=== PATIENT | female | born 1950 ===

== ENCOUNTER 2023-05-25 09:37 | Outpatient (AMB) | payer MEDICARE, SELFPAY ==
--- NOTE | 2023-05-25 10:17 | AM.OFFWIN_ITS ---
Intake Vital Signs 05/25/23 10:19 Height 5 ft 6 in Weight 97.069 kg BMI 34.5 BP 120/70 Blood Pressure Location Lt brachial Position Sitting Pulse 87 Pulse Source Pulse Oximeter Temp 97.5 F Temp Source Temporal Artery Scan Pulse Oximetry (%) 98 Oxygen Delivery Method Room Air Intake Visit Reasons: SHIP PILOT/toe issues/[phone] Intake Note: pt is here today for toe issues started 2 days ago Patient Tobacco Use Status: Never used Tobacco Allergies No Known Allergies Allergy (Verified 05/25/23 10:18) Do you need a note to return to daycare/school/sports/work: No HPI HPI Comments History of Present Illness Details 72-year-old female presents with discolo ration of right great toenail and redness and warmth surrounding this has been going on for the past few months worsening, the redness however is new. Patient saw Dermatology for the yellowing of the nail who supposedly told her to get a pedicure. Denies recent trauma to affected digit. She says there may have been a remote history of her dropping a jar of pickles onto her right great toe. Denies numbness, tingling, fevers, chills. Has not seen podiatry Physical exam significant for No lower extremity edema.? No calf ttp. 5/5 strength to bilateral upper and lower extremities + onychomycosis of right great toe w/ surrounding paronychia w/o abscess. Noraml 2+ DP pulses equal and b/l. Normal sensation distally This is likely onychomycosis with superimposed paronychia. No signs of neurovascular compromise, threat to [place], necrotizing infection at this time. Plan will have her follow-up with Podiatry, gave her the information for [facility] in [place]. Will treat with Keflex for paronychia. And fluconazole X1 dose although i explained to her im not sure it will make much of a difference. I explained to patient this condition is usually treated with oral antifungals that are very rough on the liver and she should be closely monitored by a provider while taking these antifungals, I do not feel comfortable prescribing this from an urgent care setting. Patient understands this and states she will call Podiatry. Educated patient on diagnosis and treatment plan, answered all question, patient verbalizes understanding. At this time patient will be discharged home, advised to return with new or worsening symptoms. Educated on worrisome signs and symptoms and when to return. At this time I feel comfortable discharge home. [facility] Social History Patient Tobacco Use Status: Never used Tobacco Review of Systems Const All systems reviewed & are unremarkable except as noted in HPI and below Physical Exam Vital Signs: Last Vital Signs Temp 97.5 F 05/25/23 10:19 Pulse 87 05/25/23 10:19 BP 120/70 05/25/23 10:19 Pulse Ox 98 05/25/23 10:19 Oxygen Delivery Method Room Air 05/25/23 10:19 BMI result Body Mass Index 34.5 vss Appearance: Alert.? Oriented X3.? No acute distress.? Head: Normocephalic, atraumatic, no step-offs or deformities Eyes: Pupils equal, round and reactive to light.? Neck: Normal inspection.? Neck supple.? CVS:Pulses normal.? Respiratory: No respiratory distress. Skin: Skin warm and dry.? Normal skin color.? Normal skin turgor.? Extremities: No lower extremity edema.? No calf ttp. 5/5 strength to bilateral upper and lower extremities + onychomycosis of right great toe w/ surrounding paronychia w/o abscess. Noraml 2+ DP pulses equal and b/l. Normal sensation distally Neuro: Oriented X 3.? No motor deficit.? No sensory deficit. CN 2-12 intact Assessment & Plan Assessment & Plan (1) Onychomycosis: Code(s): B35.1 - Tinea unguium Plan Take your medications as prescribed. If you were prescribed antibiotics today, it is important that you take your medication to their entirety, do not skip any doses, do not finish them early. Follow-up with your primary care provider this week. Return to the emergency department with new or worsening symptoms. Such as fevers, chills, chest pain, shortness of breath, nausea, vomiting, dizziness, headache, vision changes, lethargy In case of emergency call 911 Try over the counter anti fungal topicals for nails Follow up w/ podiatry Medications: New cephalexin 500 mg PO QID 7 days 28 caps 0RF fluconazole 150 mg PO Q3D 1 tab 0RF Coding Level of Care Code New Pt Level 4 (76889) Diagnoses Onychomycosis B35.1
[2023-05-25 10:19] VITALS: BP 120/70; PULSE 87; TEMP 36.4; O2SAT 98; BMI 34.5
== END 2023-05-25 11:31 | disposition home or self-care (01) ==
PROVIDERS: Visit Provider Physician Assistant
DX: B35.1 Tinea unguium (principal)
CPT/HCPCS: 99204

== ENCOUNTER 2025-04-26 08:12 | Outpatient (AMB) | payer MEDICARE, SELFPAY ==
--- OUTSIDE RECORDS SUMMARY | 2025-02-01 08:00 | XMS_ITS ---
Author Organization [facility] Address [address] [place] [address] Care Team Providers Care Barrel Cooper Name Role Phone Shay Wong Primary Care Provider Blanche Galarza [phone] Encounters Encounter Location Date Provider Diagnosis [facility] [address] [place] [address] 02/01/2025 Blanche Wayne Plan Of Treatment No Information Progress Notes * Shireen HARLEYDOB:[birth year] (74 yo F)Acc No.[id number]:02/01/2025 Progress Notes Patient: Shireen MORGAN Provider: Laxmi Wayne DPM :1950 A ge:74 Y S ex:Female Date:02/01/2025 Address:[address] [id number] Pcp:Shay Wong Subjective: * Chief Complaints: * * Medical History: Objective: * Vitals: Assessment: Plan: * Treatment: * Images: * The named appointment provid er may or may not be the originator of this progress note, and it is not deemed complete until electronically signed by the appointment provider. Sign off status: Pending * Provider: Laxmi Wayne DPM Date: 0 02/01/2025 Generated for Coni sepulveda/Marita/Autumn on: 1 06/27/2024 08:18 AM EST
--- NOTE | 2025-04-26 08:18 | MHC.OFFVIS ---
Vital Signs 04/26/25 08:21 Height 5 ft 6 in Weight 177 lb BMI 28.6 BP 132/76 Blood Pressure Location Lt brachial Position Sitting Intake Visit Reasons: New patient Annual Intake Note: here for front maker lockstitch annual. Needs vaginal cream Premarin 0.625 mg Packaging Tech Required: No Information Interpreted: non-clinical & clinical Oxygen Furnace Operator: Oxygen Furnace Operator Present ([place]) Accompanied by: Self / Same As Patient Allergies No Known Allergies Allergy (Verified 04/26/25 08:24) Medication List - Last Reconciled 04/26/25 by Phoebe Purcell LPN conjugated estrogens (Premarin) 0.625 mg vaginal DAILY Do you need a note to return to daycare/school/sports/work: No HPI Comments Details: Patient is a postmenopausal woman presenting for her new patient annual front maker lockstitch examination. History of vaginal atrophy, uses Premarin, now not covered by her insurance. Currently not sexually active. Denies any vaginal dryness or irritation. STI testing offered; she declined. Attempting to eat a healthy diet with calcium and vitamin D and stays active with exercise. Hysterectomy due to uterine cancer. Last mammogram; over due, 15 yrs. ago. Had a negative experience at [facility]. [place] is PRD. [facility] Medical History Gallstone ileus Vaginal atrophy Surgical History H/O hernia repair History of cholecystectomy Hx of appendectomy History of hysterectomy for cancer Social History Household Members: Family Housing: Apartment Alcohol intake: never Patient Tobacco Use Status: Never used Tobacco Current occupational status: retired Female Reproductive History Menstrual Age of Menarche: 14 Date of last menstrual period: 04/26/18 control method: permanent sterilization Menopause type: surgical (2018 - hysterectomy due to endometrial cancer) Age of menopause: 68 Total pregnancies: 3 Number of Living Children: 2 Ab spontaneous: 1 Date of last pap smear: 04/26/18 Date of Mammogram: 04/26/15 History of abnormal mammogram: No Date of last Bone Density Screenin04/26/10 Physical Exam Vital Signs: Last Vital Signs BP 132/76 04/26/25 08:21 BMI result Body Mass Index 28.6 Const General: cooperative, healthy appearing, no acute distress, well developed and alert Orientation/consciousness: patient oriented x3 HEENT Head: Yes normal to inspection Eyes General: appearance normal, both eyes and all related structures Neck Neck: Yes normal visual inspection Thyroid: Thyroid normal Chest Chest palpation & inspection: normal inspection of the chest Breast/axilla inspection: normal inspection of the breasts, normal inspection of the axillae and Other (No puckering, dimpling, peau de orange, retraction, discharge, or masses) Breast/axilla palpation: normal palpation of the breasts and normal palpation of the axillae GI Inspection: Yes normal to inspection Palpation (GI): Soft to palpation General: Yes bladder normal to inspection and Yes bladder normal to palpation External Female Exam: normal external appearance and normal appearance of the urethra Speculum Exam - Vagina: normal appearance of the vagina and normal vaginal discharge Speculum Exam - Cervix: Cervix absent (Vaginal cuff, no lesions or nodules) Bimanual exam- vagina & uterus: bladder normal to palpation and uterus absent Bimanual Exam- Adnexa, other: no masses and No adnexal tenderness Skin General skin exam: no rashes or lesions noted Neuro General: patient oriented x3 Cognition (Neuro): normal cognition Extrem General: Yes normal to inspection Psych Attitude: cooperative Thought process: Normal thought process present Assessment & Plan Assessment & Plan (1) Encounter for well woman exam with routine gynecological exam: Code(s): Z01.419 - Encounter for gynecological examination (general) (routine) without abnormal findings Category: Medical Plan: Discussed: Current recommendations for pap smears per ASCCP guidelines. Breast awareness, periodic self breast exams and yearly mammogram. Reviewed importance of early detection through screening, it are treatment options. Patient is agreeable to book. Await results for final plan of care before initiating estrogen therapy. Maintain a healthy lifestyle, well balanced diet including Calcium 1,200 mg and Vitamin D 600 IU daily, and routine exercise. Patient verbalizes understanding and agrees to the plan of care. She was given opportunity to ask questions and all questions were answered to the best of my ability. RTO in 1 year for annual front maker lockstitch exam. This note is constructed using voice recognition software. While every effort has been made to ensure accuracy, balance wheel motion inspector errors may have been included. (2) Vaginal atrophy: Code(s): N95.2 - Postmenopausal atrophic vaginitis Plan Consider estradiol versus Premarin for insurance coverage, uses externally as directed. Patient will reach out to the office once mammogram orders completed to initiate therapy Rx pending results. The patient expressed understanding and agreement with the plan of care. All of her questions and concerns were addressed to the best of my ability. Orders: Orders MM tomosynthesis screening LT Today Z12.31 - Encounter for screening mammogram for malignant neoplasm of breast Coding Level of Care Code New Pt Prev Care >65yr (58032) Diagnoses Encounter for well woman exam with routine gynecological exam Z01.419 Vaginal atrophy N95.2
--- OUTSIDE RECORDS SUMMARY | 2025-04-26 08:18 | XMS_ITS | Clinical Summary ---
Author Organization Patient Business Ser [facility] Address [address] [place] [address] Care Team Providers Care Billing Specialist Name Role Phone Katherin Rodriguez MD Primary Care Prov ider Allergies Active Allergy Reactions Criticality Noted Date Comments Adhesive Tape-Silicones 02/05/2024 Morphine Nausea And Vomiting 02/05/2024 Medications uxufs-b-wikpse osidase 600 unit capsule Take 1 capsule by mouth See administration instructions. 2 Active lactase (LACTAID) 3,000 unit tablet Take 1 tablet (3,000 Units total) by mouth 3 (three) times a day with meals. 2 Active magnesium hydroxide (MILK OF MAGNESIA) 400 mg/5 mL suspension Take 15 mL by mouth at bedtime. Active Premarin vaginal cream UNWRAP AND INSERT 0.5 GRAMS VAGINALLY EVERY NIGHT AT BEDTIME FOR 2 WEEKS THEN DECREASE TO 3 TIMES WEEKLY 30 g 4 Active clotrimazole-b etamethasone (LOTRISONE) 1-0.05 % cream APPLY THIN LAYER TO THE AFFECTED AREA BETWEEN BREASTS TWICE DAILY FOR 2 WEEKS THEN STOP Active famotidine (Pepcid) 40 mg tablet Take 1 tablet (40 mg total) by mouth 2 (two) times a day. 5 Active polyethylene glycol (Golytely) 236-22.74-6.74 -5.86 gram solution Take 4L by mouth once for one dose. May substitue any PEG. Starting at 2PM the day before your procedure drink 1 8oz glasses at your own pace until you complete half of the gallon. Finish 2nd half of the gallon at 8PM. 4000 mL Active bisacodyL (DULCOLAX) 5 mg EC tablet Take 2 tablets by mouth right before beginning bowel prep. See instructions provided by the office 2 tablet Active Active Problems Problem Noted Date Diagnosed Date Transfusion of blood product refused for [facility] reason 02/14/2025 Assessment & Plan (02/14/2025 5:30 PM EDT): Esophageal dysphagia 09/28/2024 Gastroesophageal reflux disease without esophagi tis 09/28/2024 Assessment & Plan (02/14/2025 5:30 PM EDT): Manages with Famotidine 40mg BID. Will continue same medication. 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 11/30/2020 Basal cell carcinoma (BCC) of skin of neck 01/19 Osteopenia 07/30/2018 SCC (squamous cell carcinoma) 05/21/2018 Fibromyalgia 05/17/2018 Anxiety 01/15/2018 Overview (02/05/2024): Sees Dr Gambino Obesity (BMI 30-39.9) 01/15/2018 Encounters Date Type Department Care Team Description 04/20/2025 11:30 AM EST Treatment Outpatient Rehabilitation [address] [phone] Antonio Mosqueda, PT Chronic pain of left knee (Primary Dx); At risk for falling; Abdominal pain, right lower quadrant 04/17/2025 10:00 AM EST Treatment Outpatient Rehabilitation [address] [phone] Lolos, Jo H, LINER WORKER Chronic pain of left knee (Primary Dx); At risk for falling; Abdominal pain, right lower quadrant 04/13/2025 8:30 AM EST Treatment Outpatient Rehabilitation - [address] [phone] Jo Isaacs, LINER WORKER Chronic pain of left knee (Primary Dx); At risk for falling; Abdominal pain, right lower quadrant 04/10/2025 11:30 AM EST Treatment Outpatient Rehabilitation - [address] [phone] Antonio Mosqueda, PT Chronic pain of left knee (Primary Dx); At risk for falling; Abdominal pain, right lower quadrant 04/03/2025 12:30 PM EST Treatment Outpatient [facility] - [address] [phone] Antonio Mosqueda, PT Chronic pain of left knee (Primary Dx); At risk for falling; Abdominal pain, right lower quadrant 03/30/2025 12:00 PM EST Treatment Outpatient Rehabilitation - [address] [phone] Jo Isaacs, LINER WORKER Chronic pain of left knee (Primary Dx); At risk for falling; Abdominal pain, right lower quadrant 03/27/2025 11:30 AM EST Treatment Outpatient [address] [phone] Jo Isaacs H, LINER WORKER Chronic pain of left knee (Primary Dx); At risk for falling; Abdominal pain, right lower quadrant 03/23/2025 9:00 AM EST Evaluation Outpatient [facility] - [address] [phone] Antonio Mosqueda, PT Chronic pain of left knee (Primary Dx); At risk for falling; Abdominal pain, right lower quadrant 03/23/2025 Plan of Care Documentation Outpatient [facility] - [address] [phone] 03/21/2025 11:00 AM EST Ancillary Procedure [facility] - [address] [place] [address] Syncope and collapse 03/07/2025 Results Follow-Up Adult Medicine [address] [phone] Gayle Alcaraz PA 03/06/2025 8:00 AM EDT Office Visit [address] [phone] Gayle Alcaraz PA Syncope and collapse (Primary Dx); Gastroesophageal reflux disease without esophagitis; Anxiety 03/06/2025 Results Follow-Up [address] [phone] Katherin Nova MD 03/03/2025 Telephone Gastroenterology - [place] [address] [place] [id number] Akhil Brantley MD 02/14/2025 8:30 AM EDT Office Visit [address] [phone] Katherin Nova MD Encounter for general adult medical examination without abnormal findings (Primary Dx); Gastroesophageal reflux disease without esophagitis; Pain in both feet; Chronic pain of left knee; At high risk for falls; Transfusion of blood product refused for gnosticist reason; Right lower quadrant abdominal pain; Advance care planning; Need for prophylactic vaccination and inoculation against influenza from Last 3 Months Immunizations Immunization Administration Dates Next Due Influenza trivalent, 0.5mL (Fluad) 65yo and olde r 02/14/2025 Moderna (age 6mo-5yr) Bivale nt Additional Dose, COVID-19 03/26/2022 Pfizer SARS-CoV-2 COVID-19, mRNA, LNP-S, preservative free 01/28/2023 Pneumococcal conjugate 20 va lent (Prevnar 20, PCV 20) 2mo and older 09/24/2022 Tdap Tetanus diptheria acell ular pertussis (Boostrix; Adacel) 7yo and older 10/09/2021 Surgical History Surgery Date Site/Laterality Comments OTHER SURGICAL HISTORY 2011 PROCEDURE: SC TOTAL ABDOMINAL HYSTERECT W/WO RMVL TUBE OVARY OTHER SURGICAL HISTORY PROCEDURE: ANESTHESIA FOR SECTION; COMMENT: x 2 OTHER SURGICAL HISTORY PROCEDURE: HISTORICAL CA BASAL CELL; COMMENT: [place] left side of forehead above eyebrow corrected with Mohs procedure [facility] CHOLECYSTECTOMY 08/03/2023 PROCEDURE: HISTORICAL CHOLECYSTECTOMY; COMMENT: [place] laparoscopic cholecystectomy with takedown of cholecystoduodenal fistula and repair of the duodenum Medical History Medical History Date Comments History of endometrial cancer 01/15/2018 DX :History of endometrial cancer; COMMENT: Dx in 2011, s/p total hysterectomy and chemo; in remission Anxiety 01/15/2018 DX:Anxiety; COMM ENT: Sees Dr Gambino Obesity (BMI 30-39.9) 01/15/2018 DX:Obesity (BMI 30-39.9) History of basal cell carcinoma 02/25/2018 DX:History of basal cell carcinoma; COMMENT: [place] left side of forehead above eyebrow corrected with Mohs procedure [facility] Fibromyalgia DX:Fibromyalgia Osteopenia 07/30/2018 DX:Osteopenia Family History Medical History Relation Name Comments Heart attack Father in 80s Stroke Mother in 80s Thyroid disease Sister Breast cancer Neg Hx Colon cancer Neg Hx Ovarian cancer Neg Hx Relation Name Status Comments Father Mother Sister Alive Social History Tobacco Use Types Packs/Day Years Used Date Smoking Tobacco: Never Smokeless Tobacco: Never Tobacco Cessation:Counseling Given: Not Answered Alcohol Use Standard Drinks/Week Comments No 0 (1 standard drink = 0.6 oz pur e alcohol) Housing Instability Answer Date Recorde d Are you worried that in the next 2 months you may not have stable housing? No 02/14/2025 Food Access & Nutrition Answer Date Rec orded Do you have access to a vari ety of food including fruits and vegetables? Yes 02/14/2025 Health Literacy Answer Date Recorded How often do you need to hav e someone help you when you read instructions, pamphlets, or other written material from your doctor or pharmacy? Patient declined 02/14/2025 Caregiver: How often do you need to have someone help you when you read instructions, pamphlets, or other written material from your doctor or pharmacy? Not on file 10/07/2 025 Financial Risk Answer Date Recorded How hard is it for you to pa y for the very basics like food, housing, medical care, and air conditioning / heating? Not very hard 02/14/2025 Transportation Answer Date Recorded Has the lack of transportati on kept you from meetings, work, or from getting things needed for daily living? No Has the lack of transportati on kept you from medical appointments or from getting medications? No 02/14/2025 Social Isolation Answer Date Recorded How often do you feel lonely or isolated from th ose around you? Never 02/14/2025 Food Risk Answer Date Recorded Within the past 12 months we worried whether our food would run out before we got money to buy more. Never true 02/14/2025 Within the past 12 months th e food we bought just didn't last and we didn't have money to get more. Never true 02/14/2025 Dependent Care Answer Date Recorded Do you need help finding or paying for care for your loved ones. For example, child and adolescent psychiatrist or elderly care for an older adult? No 02/14/2025 Education Answer Date Recorded Do you think completing more education or training, like finishing a GED, going to college, or learning a trade, would be helpful for you? Patient declined 02/14/2025 Employment and Income Answer Date Recor ded During the last four weeks, have you been actively looking for work? Patient declined 02/14/2025 Living Situation Answer Date Recorded What is your living situation? Unrecognized valu e 02/14/2025 Interpersonal Safety Answer Date Record ed Physical Abuse Unrecognized value 11/30/2024 Verbal Abuse Unrecognized value 11/30/2024 Comments No Sex and Gender Information Value Date Recorded Sex Assigned at Female 07/19/2024 11:55 AM EDT Legal Sex Female 4:13 PM EDT Gender Identity Female 07/19/2024 11:55 AM EDT Sexual Orientation Not on file Last Filed Vital Signs Vital Sign Reading Time Taken Comments Blood Pressure 149/76 03/21/2025 11:34 AM EST Pulse 78 03/06/2025 7:57 AM EDT Temperature 35.8 C (96.4 F) 03/06/2025 8:26 AM EDT Respiratory Rate 14 03/06/2025 7:57 AM EDT Oxygen Saturation 99% 03/06/2025 7:57 AM EDT Inhaled Oxygen Concentration - - Weight 78.9 kg (174 lb) 03/21/2025 11:34 AM EST Height 167.6 cm (5' 6 ) 03/21/2025 11:34 AM EST Body Mass Index 28.08 03/21/2025 11:34 AM EST Plan of Treatment Upcoming Encounters Date Type Department Care Team (Late st Contact Info) Description 02/15/2026 8:00 AM EDT Office Visit Adult Medicine [facility] [address] [place] [address] Katherin Rodriguez MD [address] [place] [address] Health Maintenance Due Date Last Done Comments Breast Cancer Screening 1950 Osteoporosis Screening (Bone Density Screening) 01/18/2020 Colorectal Cancer Screening: Colonoscopy 09/08/2024 01/15/2018 COVID-19 Vaccine (8 - Moderna risk season) 2025 02/15/2025, 07/20/2024, 01/28/2023, Additional history exists Falls Risk Assessment 02/14/2026 02/14/2025 , 02/14/2025, 11/30/2024 Medicare Annual Wellness Visit 02/14/2026 02/14/2025 Social Influencers of Health Screening 02/14/2026 02/14/2025 RSV Immunization Adult Patients (1 - 1-dose 75+ series) 08/01/2027 Cholesterol Screening (Lipid Panel) 03/06/2030 03/06/2025, 08/19/2024, 04/28/2022, Additional history exists DTaP,Tdap,and Td Vaccines (2 - Td or Tdap) 10/10/2031 10/09/2021 Hepatitis C Screening Completed 04/28/2022 Pneumococcal Vaccine: 50+ Years Completed 09/24/2022 Depression Screening Completed 02/14/2025 Influenza Vaccine Completed 02/14/2025, 07/12/2024 HIB Vaccines Aged Out No longer eligi ble based on patient's age to complete this topic HPV Vaccines Aged Out No longer eligi ble based on patient's age to complete this topic Hepatitis A Vaccines Aged Out No long er eligible based on patient's age to complete this topic Hepatitis B Vaccines Aged Out No long er eligible based on patient's age to complete this topic IPV Vaccines Aged Out No longer eligi ble based on patient's age to complete this topic MMR Vaccines Aged Out No longer eligi ble based on patient's age to complete this topic Meningococcal ACWY Vaccine Aged Out N o longer eligible based on patient's age to complete this topic Meningococcal B Vaccine Aged Out No l onger eligible based on patient's age to complete this topic RSV Immunization Patients Under 20 months Aged Out No longer eligible based on patient's age to complete this topic Varicella Vaccines Aged Out No longer eligible based on patient's age to complete this topic Zoster Vaccines Discontinued Procedures Procedure Name Priority Date/Time Associated Diagnosis Comments TRANSTHORACIC ECHOCARDIOGRAM (TTE) COMPLETE Routine 03/21/2025 11:34 AM EST Syncope and collapse CBC WITH AUTO DIFFERENTIAL Routine 03/06/2025 9:04 AM EDT Syncope and collapse LIPID PANEL WITH REFLEX TO DIRECT LDL Routine 03/06/2025 9:04 AM EDT Encounter for general adult medical examination without abnormal findings THYROID STIMULATING HORMONE WITH REFLEX TO FREE T4 AND FREE T3 Routine 03/06/2025 9:04 AM EDT Syncope and collapse CBC AND DIFFERENTIAL Routine 03/06/2025 9:04 AM EDT Syncope and collapse COMPREHENSIVE METABOLIC PANEL Routine 03/06/2025 9:04 AM EDT Syncope and collapse MAGNESIUM Routine 03/06/2025 9:04 AM EDT Syncope and collapse ECG 12-LEAD Routine 03/06/2025 8:37 AM EDT Syncope and collapse HEPATITIS C SCREENING Routine 04/28/2022 COLONOSCOPY Routine 01/15/2018 from Last 3 Months or Most Recently Relevant to Health Maintenance Results * (ABNORMAL) TRANSTHORACIC ECHOCARDIOGRAM (TTE) COMPLETE (03/21/2025 11:34 AM EST) Left Atrium Minor [place] 4.9 cm CV PACS Left Atrium Major [place] 5.4 cm CV PACS LA Area Sys (A2C) 18 cm2 CV PACS LA Area Sys (A4C) 18 cm2 CV PACS LA Volume (BP) 52 mL CV PACS AV Mean Gradient 4 mmHg CV PACS Ao VTI 27.1 cm CV PACS AV Peak Imer 1.4 m/s CV PACS AV Peak Gradient 8 mmHg CV PACS AV Area Continuity Equation 2.2 cm2 CV PACS AV Area Peak Velocity 2.2 cm2 CV PACS Aortic Sinus Valsalva 3.3 cm CV PACS Ascending Aorta 3.3 cm CV PACS IVC Proximal 1.1 cm CV PACS IVSD 0.8 0.6 - 0.9 cm CV PACS LVIDD 5.1 3.8 - 5.2 cm CV PACS LVIDS 3.6(A) 2.2 - 3.5 cm CV PACS LVOT Diameter 2.0 cm CV PACS LVOT Mean Grad 2 mmHg CV PACS LVOT Peak VTI 19.1 cm CV PACS LVOT Mean Imer 0.6 m/s CV PACS LVOT Peak Imer 0.9 m/s CV PACS LVOT Peak Gradient 4 mmHg CV PACS LVPWD 0.8 0.6 - 0.9 cm CV PACS MV E' Tissue Velocity Lateral 5 cm/s CV PACS MV E' Tissue Velocity Septal 6 cm/s CV PACS LVOT Area 3.1 cm2 CV PACS LVOT Stroke Volume 60 mL CV PACS E Wave Deceleration Time 187 119 - 242 ms CV PACS MV Peak A Imer 0.84 m/s CV PACS MV Peak E Imer 0.52 m/s CV PACS PV Acceleration Time 120 ms CV PACS PV Acceleration Time 120 ms CV PACS PV Peak Velocity 1.0 m/s CV PACS PV Peak Gradient 4 mmHg CV PACS RV S' 13 cm/s CV PACS TAPSE 19 mm CV PACS TR Peak Velocity 1.90 m/s CV PACS TR Peak Gradient 14 mmHg CV PACS E/E' Ratio Septal 9 CV PACS E/E' Ratio Averaged 10 CV PACS LVOT Stroke Index 32 mL/m2 CV PACS Relative Wall Thickness ratio 0.31 CV PACS LVOT:AV VTI Index 0.70 CV PACS FS 29 % CV PACS LV Mass 2D 140 g CV PACS Ascending Aorta Index 1.75 cm/m2 CV PACS LVOT flow 188 mL/s CV PACS ADRIAN Index (VTI) 1.17 cm2/m2 CV PACS ADRIAN Index (Pk Imer) 1.16 cm2/m2 CV PACS LVIDD Index 2.70 cm/m2 CV PACS LVIDS Index 1.90 cm/m2 CV PACS AV Velocity Ratio 0.64 CV PACS E/A Ratio 0.6 CV PACS E/E' Ratio Lateral 10 CV PACS LA Volume Index (BP) 28 mL/m2 CV PACS LV Mass Index 2D 74 g/m2 CV PACS BSA 1.92 m2 CV PACS Right Ventricular Peak Systolic Pressure 17 mmHg CV PACS Est. RA Pressure 3 mmHg CV PACS Anatomical Region Laterality Modality Ultrasound Narrative 03/23/2025 12:29 PM EST Left ventricle cavity size is normal. Left ventricular systolic function is in the normal range with an ejection fraction of 55-60%. No regional LV wall motion abnormalities noted. Left ventricle wall thickness is normal. Right ventricular systolic function is normal. Atria are normal in size. No significant valve disease. See remainder of the report for additional findings. Left Ventricle Left ventricle cavity size is normal. Wall thickness is normal. Systolic function is normal with an ejection fraction of 55-60%. There are no regional LV wall motion abnormalities. There is no diastolic dysfunction. Right Ventricle Right ventricle was not well visualized. Systolic function is normal. Left Atrium Left atrium volume index is normal. Right Atrium Right atrium was not well visualized. IVC/SVC RA pressures is estimated to be 3 mmHg (IVC diameter <21 mm and decreases >50% during inspiration). Mitral Valve The leaflets are mildly thickened. There is mild annular calcification. There is trace regurgitation. There is no evidence of mitral valve stenosis. Tricuspid Valve The leaflets exhibit normal excursion. There is trace regurgitation. The RVSP is estimated at 17 mmHg. Aortic Valve The aortic valve is trileaflet. The leaflets are mildly thickened. There is no regurgitation or stenosis. Pulmonic Valve Visualized portions of the pulmonic valve appear normal. There is trace pulmonic valve regurgitation. Ascending Aorta The aorta appears normal in size. Pericardium There is an fat pad. There is no pericardial effusion. Study Details Overall the study quality was technically difficult. Definity contrast was given to enhance imaging. Study was difficult due to: poor endocardial visualization. us Gayle VUONG CV ECHO PROCEDURES Final Result * Thyroid stimulating hormone with reflex to free t4 and free t3 (03/06/2025 9:04 AM EDT) [facility] TSH 1.35 0.40 - 4.00 mcIU/mL LAB CHEMISTRY METHOD 03/06/2025 6:08 PM EDT [facility] Blood Venous blood specimen / Unknown Venipuncture / Unknown 03/06/2025 9:04 AM EDT 03/06/2025 9:04 AM EDT Gayle VUONG LAB BLOOD ORDERABLES Final Resul t [facility] [address] [place] [address], [place] [phone] * (ABNORMAL) Lipid panel with reflex to direct LDL (03/06/2025 9:04 AM EDT) [facility] Cholesterol 234(H) 0 - 200 mg/dL LAB CHEMISTRY METHOD 03/06/2025 4:00 PM EDT [facility] Triglycerides 163(H) 0 - 150 mg/dL LAB CHEMISTRY METHOD 03/06/2025 4:00 PM EDT [facility] HDL 64 >=40 mg/dL LAB CHEMISTRY METHOD 03/06/2025 4:00 PM EDT [facility] LDL Calculated 137(H) 0 - 100 mg/dL LAB CHEMISTRY METHOD 03/06/2025 4:00 PM EDT [facility] Comment:Estimated LDL Calcul ated using equation: Total cholesterol - HDL cholesterol - (Triglycerides/5) VLDL Cholesterol Pascual 32.6 mg/dL LAB CHEMISTRY METHOD 03/06/2025 4:00 PM T [facility] Non HDL Chol. (LDL+VLDL) 170(H) <145 mg/dL LAB CHEMISTRY METHOD 03/06/2025 4:00 PM [facility] Chol/HDL Ratio 3.7 0.0 - 4.4 LAB CHEMISTRY METHOD 03/06/2025 4:00 PM [facility] Blood Venous blood specimen / Unknown Venipuncture / Unknown 03/06/2025 9:04 AM EDT 03/06/2025 9:04 AM EDT us Katherin Rodriguez MD LAB BLOOD ORDERABL ES Final Result [facility] [address] [place] [address], * (ABNORMAL) CBC auto differential (03/06/2025 9:04 AM EDT) WBC 5.2 4.8 - 10.8 K/mcL LAB HEMETOLOGY METHOD 03/06/2025 10:14 AM [facility] RBC 4.00 3.80 - 4.80 M/mcL LAB HEMETOLOGY METHOD 03/06/2025 10:14 AM [facility] Hemoglobin 13.0 11.5 - 16.0 g/dL LAB HEMETOLOGY METHOD 03/06/2025 10:14 AM [facility] Hematocrit 39.5 35.0 - 47.0 % LAB HEMETOLOGY METHOD 03/06/2025 10:14 AM [facility] MCV 98.5(H) 79.0 - 98.0 FL LAB HEMETOLOGY METHOD 03/06/2025 10:14 AM [facility] MCH 32.4(H) 27.0 - 32.0 pcg LAB HEMETOLOGY METHOD 03/06/2025 10:14 AM [facility] MCHC 32.9 32.0 - 37.0 g/dL LAB HEMETOLOGY METHOD 03/06/2025 10:14 AM [facility] RDW 12.3 11.0 - 15.0 % LAB HEMETOLOGY METHOD 03/06/2025 10:14 AM [facility] Platelets 220 130 - 400 K/mcL LAB HEMETOLOGY METHOD 03/06/2025 10:14 AM [facility] MPV 11.1(H) 7.0 - 11.0 FL LAB HEMETOLOGY METHOD 03/06/2025 10:14 AM [facility] NRBC 0.0 <1.0 % LAB HEMETOLOGY METHOD 03/06/2025 10:14 AM [facility] NRBC Absolute 0.00 <0.10 K/mcL LAB HEMETOLOGY METHOD 03/06/2025 10:14 AM [facility] Neutrophils Relative 59.1 % LAB HEMETOLOGY METHOD 03/06/2025 10:14 AM [facility] Lymphocytes Relative 29.5 % LAB HEMETOLOGY METHOD 03/06/2025 10:14 AM [facility] Monocytes Relative 8.5 % LAB HEMETOLOGY METHOD 03/06/2025 10:14 AM [facility] Eosinophils Relative 2.1 % LAB HEMETOLOGY METHOD 03/06/2025 10:14 AM [facility] Basophils Relative 0.6 % LAB HEMETOLOGY METHOD 03/06/2025 10:14 AM [facility] Immature Granulocytes Relative 0.2 % LAB HEMETOLOGY METHOD 03/06/2025 10:14 AM [facility] Neutrophils Absolute 3.07 1.50 - 7.00 K/mcL LAB HEMETOLOGY METHOD 03/06/2025 10:14 AM EDT [facility] Lymphocytes Absolute 1.53 1.00 - 5.00 K/mcL LAB HEMETOLOGY METHOD 03/06/2025 10:14 AM EDT [facility] Monocytes Absolute 0.44 0.20 - 1.00 K/mcL LAB HEMETOLOGY METHOD 03/06/2025 10:14 AM EDT [facility] Eosinophils Absolute 0.11 0.00 - 0.50 K/[facility] LAB HEMETOLOGY METHOD 03/06/2025 10:14 AM EDT [facility] Basophils Absolute 0.03 0.00 - 0.20 K/[facility] LAB HEMETOLOGY METHOD 03/06/2025 10:14 AM EDT [facility] Immature Granulocytes Absolute 0.01 0.00 - 0.03 K/mcL LAB HEMETOLOGY METHOD 03/06/2025 10:14 AM EDT [facility] Blood Venous blood specimen / Unknown Venipuncture / Unknown 03/06/2025 9:04 AM EDT 03/06/2025 9:04 AM EDT Gayle VUONG LAB BLOOD ORDERABLES Final Resul t Performing Organization Address [facility]/State/ZIP Co de Phone Number [facility] [address] [place] [address], * Magnesium (03/06/2025 9:04 AM EDT) Magnesium 2.6 1.9 - 2.6 mg/dL LAB CHEMISTRY METHOD 03/06/2025 4:00 PM EDT [facility] Blood Venous blood specimen / Unknown Venipuncture / Unknown 03/06/2025 9:04 AM EDT 03/06/2025 9:04 AM EDT Gayle VUONG LAB BLOOD ORDERABLES Final Resul t [facility] [address] [place] [address], [place] [phone] * (ABNORMAL) Comprehensive metabolic panel (03/06/2025 9:04 AM EDT) Sodium 140 133 - 145 mmol/L LAB CHEMISTRY METHOD 03/06/2025 4:01 PM [facility] Potassium 4.7 3.5 - 5.5 mmol/L LAB CHEMISTRY METHOD 03/06/2025 4:01 PM [facility] Chloride 108 96 - 110 mmol/L LAB CHEMISTRY METHOD 03/06/2025 4:01 PM [facility] CO2 30 21 - 32 mmol/L LAB CHEMISTRY METHOD 03/06/2025 4:01 PM [facility] Anion Gap 2(L) 3 - 11 LAB CHEMISTRY METHOD 03/06/2025 4:01 PM [facility] Glucose 94 70 - 100 mg/dL LAB CHEMISTRY METHOD 03/06/2025 4:01 PM [facility] BUN 16 5 - 25 mg/dL LAB CHEMISTRY METHOD 03/06/2025 4:01 PM [facility] Creatinine 0.88 0.50 - 1.10 mg/dL LAB CHEMISTRY METHOD 03/06/2025 4:01 PM [facility] eGFR 70 >=60 mL/min/1. 73m2 LAB CHEMISTRY METHOD 03/06/2025 4:01 PM [facility] Comment:Calculation based on the Chronic Kidney Disease Epidemiology Collaboration (CKD-EPI) equation refit without adjustment for race. BUN/Creatinine Ratio 18.2 LAB CHEMISTRY METHOD 03/06/2025 4:01 PM [facility] Calcium 9.7 8.5 - 10.5 mg/dL LAB CHEMISTRY METHOD 03/06/2025 4:01 PM [facility] AST (SGOT) 23 10 - 42 unit/L LAB CHEMISTRY METHOD 03/06/2025 4:01 PM EDT [facility] ALT (SGPT) 26 10 - 60 unit/L LAB CHEMISTRY METHOD 03/06/2025 4:01 PM EDT [facility] Alkaline Phosphatase 105 42 - 121 unit/L LAB CHEMISTRY METHOD 03/06/2025 4:01 PM EDT [facility] Total Protein 7.4 6.0 - 8.0 g/dL LAB CHEMISTRY METHOD 03/06/2025 4:01 PM EDT [facility] Albumin 3.9 3.2 - 5.0 g/dL LAB CHEMISTRY METHOD 03/06/2025 4:01 PM EDT [facility] Total Bilirubin 0.5 0.0 - 1.4 mg/dL LAB CHEMISTRY METHOD 03/06/2025 4:01 PM T [facility] Blood Venous blood specimen / Unknown Venipuncture / Unknown 03/06/2025 9:04 AM EDT 03/06/2025 9:04 AM EDT [facility] LAB BLOOD ORDERABLES Final Resul t [facility] [address] [place] [address], * ECG 12 lead (03/06/2025 8:37 AM EDT) Impressions Nazario Church [place] - 03/06/2025 8:37 AM EDT EKG: Rate 76 bpm. Sinus rhythm. RSR prime in V1, V2. Nonspecific T wave abnormalities. Gayle VUONG ECG ORDERABLES Final Result * Hepatitis C Screening (04/28/2022) Pathologist [facility] Hepatitis C Screening Abstracted Historical Provider HEALTH MAINTENANCE Final Result * Colonoscopy (01/15/2018) Colonoscopy No interpretation , abstracted Anatomical Region Laterality Modality Other us Historical Provider HEALTH MAINTENANCE Final Result from Last 3 Months or Most Recently Relevant to Health Maintenance Insurance [facility] [employer]ED OPTIONS Member Subscriber Plan / Payer (Ef fective 2017-Present) Name:Shireen Lepe Relation to Subscriber:Self Name:Shireen Lepe Payer ID:[id number] Group ID:[id number] Type:Not on file Address: [place] [address] [address] [id number] Advance Directives Documents on File Type Date Recorded Patient Life Science Teacher Expl anation Advance Directives and Living Will 02/14/2025 10:38 AM healthcare proxy Health Care Decision (hx) 08/03/2023 AD BARTH DIRECTIVE Health Care Decision (hx) 08/03/2023 HE ALTH CARE PROXY Health Care Decision (hx) 11/29/2020 AD BARTH DIRECTIVE Health Care Decision (hx) 11/29/2020 AD BARTH DIRECTIVE Health Care Decision (hx) 11/29/2020 AD BARTH DIRECTIVE Health Care Decision (hx) 11/29/2020 AD BARTH DIRECTIVE Health Care Decision (hx) 11/29/2020 AD BARTH DIRECTIVE Health Care Decision (hx) 11/29/2020 AD BARTH DIRECTIVE Health Care Decision (hx) 11/28/2020 AD BARTH DIRECTIVE Health Care Decision (hx) 11/28/2020 AD BARTH DIRECTIVE Health Care Decision (hx) 11/28/2020 AD BARTH DIRECTIVE Health Care Decision (hx) 11/28/2020 AD BARTH DIRECTIVE Health Care Decision (hx) 11/28/2020 AD BARTH DIRECTIVE Health Care Decision (hx) 11/28/2020 AD BARTH DIRECTIVE Health Care Decision (hx) 08/23/2020 AD BARTH DIRECTIVE Health Care Decision (hx) 08/23/2020 AD BARTH DIRECTIVE Health Care Decision (hx) 08/23/2020 AD BARTH DIRECTIVE Health Care Decision (hx) 08/23/2020 AD BARTH DIRECTIVE Health Care Decision (hx) 08/23/2020 AD BARTH DIRECTIVE Health Care Decision (hx) 08/23/2020 AD BARTH DIRECTIVE Health Care Decision (hx) 08/23/2020 AD BARTH DIRECTIVE Health Care Decision (hx) 08/21/2020 AD BARTH DIRECTIVE Health Care Decision (hx) 08/21/2020 AD BARTH DIRECTIVE Health Care Decision (hx) 08/21/2020 AD BARTH DIRECTIVE Health Care Decision (hx) 08/21/2020 AD BARTH DIRECTIVE Health Care Decision (hx) 08/21/2020 AD BARTH DIRECTIVE Health Care Decision (hx) 08/21/2020 AD BARTH DIRECTIVE Health Care Decision (hx) 08/21/2020 AD BARTH DIRECTIVE Health Care Decision (hx) 07/04/2019 AD BARTH DIRECTIVE Health Care Decision (hx) 07/04/2019 AD BARTH DIRECTIVE Health Care Decision (hx) 07/04/2019 AD BARTH DIRECTIVE Health Care Decision (hx) 07/04/2019 AD BARTH DIRECTIVE Health Care Decision (hx) 07/04/2019 AD BARTH DIRECTIVE Health Care Decision (hx) 07/04/2019 AD BARTH DIRECTIVE Health Care Decision (hx) 07/04/2019 AD BARTH DIRECTIVE Health Care Decision (hx) 07/04/2019 AD BARTH DIRECTIVE Care Teams Billing Specialist Relationship Specialty Start Date End Date Katherin Rodriguez MD [address] [place] [address] PCP - General Internal Medicine 12/09/21
--- OUTSIDE RECORDS SUMMARY | 2025-04-26 08:18 | XMS_ITS | Encounter Summary ---
Author Organization [facility] Address [address] [place] [address] Care Team Providers Care Fitter Type Bar And Segment Name Role Phone Katherin Rodriguez MD Primary Care Prov ider Encounter Details Date Type Department Care Team (Late st Contact Info) Description 03/07/2025 Results Follow-Up Adult Medicine [facility] [address] [place], [place] [phone] Gayle Alcaraz PA [address] [place], [place] Social History Tobacco Use Types Packs/Day Years Used Date Smoking Tobacco: Never Smokeless Tobacco: Never Alcohol Use Standard Drinks/Week Comments No 0 [...] your doctor or pharmacy? Not on file 025 Financial Risk Answer Date Recorded How [...] for your loved ones. For example, child welfare manager or elderly care for an older adult? [...] AM EDT Sexual Orientation Not on file documented as of this encounter Plan of Treatment Upcoming Encounters Date Type Department Care Team ([facility] st Contact Info) Description 02/15/2026 8:00 AM EDT Office Visit Adult [address] [phone] Katherin Rodriguez MD [address] [place], [place] documented as of this encounter Visit Diagnoses Not on filedocumented in this encounter Additional Health Concerns Assessment Noted Time PHQ-9 Depression Total Score: 0 02/15/20 9:14 AM EDT A fall risk assessment has been complete d for the patient 02/14/2025 9:11 AM EDT documented as of this encounter Care Teams Fitter Type Bar And Segment Relationship Specialty Start Date End Date Katherin Rodriguez MD [place], [place] PCP - General Internal Medicine 12/09/21 documented as of this encounter
--- OUTSIDE RECORDS SUMMARY | 2025-04-26 08:18 | XMS_ITS | Patient Health Record ---
Author Organization [facility] Address [address] [place] [address] Care Team Providers Care Employee Health Nurse Name Role Phone Shay Wong Primary Care Provider Blanche Galarza Unavailable [phone] Reason For Referral No Information Encounters Encounter Location Date Provider Diagnosis [facility] [address] [place] [address] 11/09/2024 Blanche Wayne Plan Of Treatment No Information Insurance Providers Payer Name Payer Address Payer Phone Subscriber Number Group Number Insured Name Patient Relationship to Insured Coverage Start Date Coverage End Date [facility] [employer] Claims [address] [place] [id number] Shireen King Self - patient is the insured
--- OUTSIDE RECORDS SUMMARY | 2025-04-26 08:19 | XMS_ITS | Continuity of Care Document ---
Author Name [facility], Medical Address [address] [place] [address] Organization Unknown Address [address] [place] [address] Medications No known medications Problems No known problems
--- OUTSIDE RECORDS SUMMARY | 2025-04-26 08:19 | XMS_ITS | Encounter Summary ---
Author Organization [facility] Address [address] [place] [address] Care Team Providers Care Coating And Embossing Unit Operator Name Role Phone Katherin Rodriguez MD Primary Care Prov ider Reason for Referral * Consultation (Routine) - Closed Specialty Diagnoses / Procedures Referred By Contact Referred To Contact Orthopaedics / Orthopaedic Surgery Diagnoses Acquired leg deformity Katherin Rodriguez MD [address] [place] [phone] Phone: tel: fax: Reza Lizama PA [address] [place] [phone] Phone: tel: fax: Referral ID Status Reason Start Date Expiration Date V isits Requested Visits Authorized [id number] Closed Specialty Services Required 03/07/2025 03/07/2026 1 1 Encounter Details Date Type Department Care Team (Late st Contact Info) Description 03/06/2025 Results Follow-Up Adult Medicine [address] [phone] Katherin Rodriguez MD [address] [place] [address] Social History Tobacco Use Types Packs/Day Years [...] for your loved ones. For example, child caregiver or elderly care for an older adult? [...] on file documented as of this encounter Progress Notes * Katherin Rodriguez MD - 03/07/2025 4:46 PM EDT A referral for orthopedics was placed. * Katherin Rodriguez MD - 03/07/2025 4:45 PM EDT ----- Message from Martita Murray MA sent at 03/07/2025 2:50 PM EDT ----- Patient was informed about result and would like to know if there is some one she can refer to for the orthotics ----- Message ----- From: Katherin Rodriguez MD Sent: 03/06/2025 7:27 PM EDT To: [facility] Adult Medicine [facility] ----- Message from Katherin Rodriguez MD sent at 03/06/2025 7:27 PM EDT ----- * Katherin Rodriguez MD - 03/06/2025 7:26 PM EDT I do not prescribe orthotics. That must be orthopedics documented in this encounter Plan of Treatment Upcoming Encounters Date Type Department Care Team (Late st Contact Info) Description 02/15/2026 8:00 AM EDT Office Visit Adult Medicine [address] [phone] Katherin Rodriguez MD [address] [place] [address] Scheduled Referrals Name Type Priority Associated Diagnoses Order Schedule Ambulatory referral to Orthopedic Outpatient Referral Routine Acquired leg deformity 1 Occurrences starting 03/07/2025 until 03/07/2026 documented as of this encounter Visit Diagnoses Diagnosis Acquired leg deformity- Primary documented in this encounter Additional Health Concerns Assessment Noted Time PHQ-9 Depression Total Score: 0 02/15/20 25 9:14 AM EDT A fall risk assessment has been complete d for the patient 02/14/2025 9:11 AM EDT documented as of this encounter Care Teams Coating And Embossing Unit Operator Relationship Specialty Start Date End Date Katherin Rodriguez MD [address] [place] [address] PCP - General Internal Medicine 12/09/21 documented as of this encounter
[2025-04-26 08:21] VITALS: BP 132/76; BMI 28.6
== END 2025-04-26 09:17 | disposition home or self-care (01) ==
LOC: HO.HWS 08:12
PROVIDERS: Visit Provider Advanced Practice Midwife
DX: Z01.419 Encounter for gynecological examination (general) (routine) without abnormal findings (principal); N95.2 Postmenopausal atrophic vaginitis
CPT/HCPCS: 99387; 99459

== ENCOUNTER → 2025-04-26 08:12 | Outpatient (BNVA) | payer MEDICARE, SELFPAY | PROVIDERS: Visit Provider Advanced Practice Midwife | DX: Z01.419 Encounter for gynecological examination (general) (routine) without abnormal findings (principal); N95.2 Postmenopausal atrophic vaginitis | CPT/HCPCS: 99387 ==